=== PATIENT | male | born 1955 | race Hispanic/Latino ===

== ENCOUNTER 2023-05-03 11:28 | Emergency (ER) | payer SELFPAY ==
[2023-05-03] MEDS ORDERED: Iopamidol 300 61% 100 ML VIAL FS ONE (12:01)
[2023-05-03] MEDS ORDERED: Ondansetron PF 4 MG/2 ML Vial ONE (12:02)
[2023-05-03] MEDS ORDERED: Morphine 4 MG/ML VIAL ONE (12:02)
[2023-05-03 12:12] LABS: Bilirubin Neg (Negative); Blood, Urine 10 (Negative); Glucose, Urine (Dipstick) Normal (Negative); Ketone, Urine Negative (Negative); Leukocyte Negative (Negative); Nitrite Negative (Negative); Protein, Urine (Dipstick) 30 mg/dl (Neg-Trace); Urobilinogen Normal mg/dL (Less than 2); pH, Urine 6.5 (5.0-9.0)
[2023-05-03 12:15] LABS: Clarity Clear (Clear)
[2023-05-03 12:18] LABS: Bacteria/HPF None Seen HPF (None Seen); CAUTI Indications for Culture Pelvic or flank pain; RBC/HPF None Seen HPF (0-3); Squamous Epithelial None Seen HPF (0-3); Urine Culture Reflex No No; WBC/HPF None Seen HPF (0-3)
[2023-05-03 12:18] LABS: Hematocrit 47.2 % (38.8-50.0); Hemoglobin 16.5 g/dL (13.5-17.5); Mean Corpuscular Hemoglobin 27.7 pg (27.0-33.0); Mean Corpuscular Volume 79.3 fl (81.2-95.1); Mean Platelet Volume 10.3 fl (7.4-10.4); Platelet Count 182 10x3/uL (150-450); RBC Distribution Width 13.8 % (11.5-14.5); Red Blood Cell (RBC) Count 5.95 10x6/uL (4.32-5.72); White Blood Cell (WBC) Count 5.3 10x3/uL (3.5-10.5)
[2023-05-03 12:23] LABS: MDiff Complete? YES
[2023-05-03 12:44] LABS: ALT (SGPT) 45 U/L (8-55); Alkaline Phosphatase 97 U/L (40-110); Anion Gap 16 mmol/L (10-20); BUN (Urea Nitrogen) 19 mg/dL (8.4-25.7); Bilirubin, Total 0.5 mg/dL (0.2-1.2); Calc. Creatinine Clearance 0 mL/min (70-130); Calcium 8.5 mg/dL (7.8-10.44); Carbon Dioxide 22 mmol/L (23-31); Chloride 93 mmol/L (98-107); Estimated GFR 85; Globulin 3.3 g/dL (2.4-3.5); Glucose 105 mg/dL (80-115); Lipase 422 U/L (8-78); Potassium 3.6 mmol/L (3.5-5.1); Protein, Total 7.3 g/dL (5.8-8.1); Sodium 127 mmol/L (136-145)
[2023-05-03 12:51] LABS: Band 18 % (5-11); Lymphocytes 28 % (21-51); Monocytes 10 % (0-10); Neutrophil 35 % (42-75); Reactive Lymphocytes 9 % (0-10)
[2023-05-03 12:53] LABS: AST (SGOT) 44 U/L (5-34); Platelet Adequacy Comment Appears Adequate; Vacuoles SLIGHT
[2023-05-03 13:03] LABS: RBC Morph Comment Within Normal Limits
[2023-05-03 13:15] LABS: Troponin I Less than 0.010 ng/mL (< 0.028)
== END 2023-05-03 14:04 | disposition home or self-care (01) ==
LOC: CSHERS 11:28
DX: K52.9 Noninfective gastroenteritis and colitis, unspecified (principal); K85.90 Acute pancreatitis without necrosis or infection, unspecified; F17.210 Nicotine dependence, cigarettes, uncomplicated
CPT/HCPCS: 36415; 71045; 74177; 80053; 81001; 83690; 84484; 85025; 93005; 96374; 96375; J2270; J2405; Q9967